=== PATIENT | female | born 1970 | race Caucasian/White ===

== ENCOUNTER → 2017-11-09 09:38 | Outpatient (CLI) | payer BC, SELFPAY ==
--- NOTE | 2017-11-09 09:44 | XR_ITS ---
XR hip RT 2-3V w/pelvis HISTORY: Pain following injury ITS.REASON: FALL ORDERING PHYSICIAN: Vi Berry MD PATIENT AGE: 47 years COMPARISON: None FINDINGS: No fracture or dislocation is evident. No significant degenerative change. No lytic or blastic change. Unremarkable soft tissues IMPRESSION: Negative hip
--- NOTE | 2017-11-09 09:44 | XR_ITS ---
XR hip LT 2-3V w/pelvis HISTORY: Post traumatic pain ITS.REASON: FALL ORDERING PHYSICIAN: Vi Berry MD PATIENT AGE: 47 years COMPARISON: None FINDINGS: No fracture or dislocation is evident. No significant degenerative change. No lytic or blastic change. Unremarkable soft tissues IMPRESSION: Negative hip
== END ==
PROVIDERS: PCP Emergency Medicine; Visit Provider Emergency Medicine
DX: M25.552 Pain in left hip (principal); M25.551 Pain in right hip; W10.8XXA Fall (on) (from) other stairs and steps, initial encounter
CPT/HCPCS: 73502

== ENCOUNTER 2020-12-01 11:39 | Emergency (ER) | payer BC, SELFPAY ==
[2020-12-01 13:10] VITALS: BP 133/77; PULSE 110; RESP 21; TEMP 38.2; O2SAT 97; BMI 26.8
--- NOTE | 2020-12-01 13:31 | HMH.EDUTC ---
[facility] [place] Clinical Impression: Viral syndrome Disposition: Home, Self-Care Condition on Discharge: Good Instructions: DI for Viral Syndrome, DI for COVID-19 (Suspected or Confirmed ), Preventing the Spread of Coronavirus Discharge Instructions Additional Instructions: *Monitor Temp, Over the counter Motrin or Tylenol as directed/as needed Tylenol every 4 hours and Motrin every 6 hours (as long as your family doctor has told you that you can take it) for fever or pain. and straight to ER if unable to lower temp less than 101.0 after medication given *Warm salt water gargles may help to soothe the throat *Throat Lozenges *Warm fluids like tea with honey may help to soothe the throat *Sleep elevated *Humidifier/Vaporizer Take medication as prescribed Follow up IMMEDIATELY for new or worsening symptoms or no Noticeable improvement over the next 48-72 hours. 911 for difficulty breathing or swallowing You were tested for today for COVID19 your test result should be back in the next 24-48 hours, you was given handout on how to log onto the [facility] portal to get your results if you have trouble logging on you may call the [facility] You was given a handout with instructions for Self Quarantine and Self isolation for while you wait on test results and what to do if they are positive If you are positive the Health Dept will be contacting you also Make sure to take your Vitamins Vit. C Vit D and Zinc if you can take them Prescriptions: Benzonatate [Tessalon Perle 100mg Cap*] 100 mg PO TID PRN #30 cap PRN Reason: Cough Transmission Status: Received by [facility] Ondansetron [Zofran 4mg ODT] 4 mg PO TIDP PRN #20 tab PRN Reason: Nausea Transmission Status: Received by [facility] Referrals: Radha Ortiz MD [Primary Care Provider] - As needed Forms: Work/School Release Time of Disposition: 14:02 Medical Decision Making - Leobardo Inquiry Pt receiving controlled substance: No Leobardo was queried for this patient: No Vital Signs: 12/01/20 13:10 12/01/20 14:07 Temperature 100.7 F H 100.7 F H Temperature Source Oral Pulse Rate 110 H Pulse Rate [Right Brachial] 110 H Respiratory Rate 21 21 Blood Pressure 133/77 Blood Pressure [Right Arm] 133/77 Blood Pressure Mean [Right Arm] 95 Blood Pressure Source [Right Arm] Automatic Cuff Blood Pressure Position [Right Arm] Sitting 02 Sat by Pulse Oximetry 97 Oxygen Delivery Method Room Air Orders (Tests/Meds): ED MEDICATIONS Discontinued Medications Generic Name Dose Route Start Last Admin Trade Name Freq PRN Reason Stop Dose Admin Ondansetron HCl 4 mg 12/01/20 13:31 12/01/20 13:38 Ondansetron 4mg/2ml Vial IM 12/01/20 13:32 4 mg ONCE ONE Administration Medical Decision Narrative: No vomiting after medication [facility] [place] HPI - General Stated complaint: cough, nasuea Time Seen by Provider: 12/01/20 13:31 Mode of Arrival: Ambulatory Source of Information: Patient Limitations: No Limitations Description of Symptoms (Recalled from Triage Doc. by RN): PATIENT C/O COUGH, CHILLS, NAUSEA AND DIARRHEA SINCE TUESDAY HEENT Symptoms (Recalled from RN notes): No Resp Symptoms (Recalled from RN notes): Yes Skin Symptoms (Recalled from RN notes): No MS Symptoms (Recalled from RN notes): No Functional Status (Recalled from RN notes): WNL - History of Present Illness Provider Complaint: Patient not been feeing well for several days having cough, body aches, fever, chills, nausea and vomiting States that today she and her has been having similar symptoms so they came in to get checked - Related Data Previous Rx's Medication Instructions Recorded Benzonatate [Tessalon Perle 100mg 100 mg PO TID PRN #30 cap 12/01/20 Cap*] Ondansetron [Zofran 4mg ODT] 4 mg PO TIDP PRN #20 tab 12/01/20 Allergies Allergy/AdvReac Type Severity Reaction Status Date / Time No Known Allergies Allergy Verified 12/01/20 13:30
[2020-12-01 14:07] VITALS: BP 133/77; PULSE 110; RESP 21; TEMP 38.2; O2SAT 97
== END 2020-12-01 14:14 | disposition home or self-care (01) ==
PROVIDERS: Emergency Provider Nurse Practitioner; PCP Family Medicine
DX: U07.1 COVID-19 (principal)
CPT/HCPCS: 96372; 99202; C9803; G0463; J2405; U0003; U0005

== ENCOUNTER 2020-12-05 13:22 | Emergency (ER) | payer BC, SELFPAY ==
[2020-12-05 13:30] VITALS: BP 119/77; PULSE 90; RESP 18; TEMP 36.8; O2SAT 98; BMI 26.6
--- NOTE | 2020-12-05 14:06 | HMH.EDUTC ---
[facility] [place]ression: Nausea & vomiting Qualifiers: Vomiting type: unspecified Vomiting Intractability: unspecified Qualified Code(s): R11.2 - Nausea with vomiting, unspecified Disposition: Home, Self-Care Condition on Discharge: Good Instructions: DI for Nausea -- Adult, Nausea and Vomiting-Adult, Promethazine, DI for COVID-19 (Suspected or Confirmed ) Additional Instructions: Drink extra fluids with and between meals. If you have difficulty drinking, try very small amounts of water or suck on ice chips. ? Avoid fruit juices, as these do not replace minerals and can actually increase diarrhea. ? Children and adults can use sports drinks to replenish electrolytes. Younger children and infants should use products formulated for children, like oral rehydration solutions. ? Eat food in small amounts and let your stomach recover. ? Get lots of rest. You may feel tired or weak. ? No greasy or fried foods for the next 24-48 hours BRAT diet Bananas Rice Apples and Tuttle ? Make sure to drink plenty of liquids ? Return if needed ? Straight to ER if any life threatening symptoms ? Phenergan as prescribed ? Follow up with family doctor in the next 48-72 hours if no improvement or any worsening of symptoms Prescriptions: Promethazine HCl [Phenergan 12.5mg tablet] 12.5 mg PO Q6H PRN #12 tab PRN Reason: Nausea Transmission Status: Received by [facility] Referrals: Radha Ortiz MD [Primary Care Provider] - As needed Time of Disposition: 15:35 Medical Decision Making - Leobardo Inquiry Pt receiving controlled substance: No Leobardo was queried for this patient: No Vital Signs: 12/05/20 13:30 12/05/20 15:12 Temperature 98.3 F 98.3 F Temperature Source Oral Pulse Rate 90 Pulse Rate [Right Brachial] 90 Respiratory Rate 18 18 Blood Pressure 119/77 Blood Pressure [Right Arm] 119/77 Blood Pressure Mean [Right Arm] 91 Blood Pressure Source [Right Arm] Automatic Cuff Blood Pressure Position [Right Arm] Sitting 02 Sat by Pulse Oximetry 98 Oxygen Delivery Method Room Air Orders (Tests/Meds): ED MEDICATIONS Generic Name Dose Route Start Last Admin Trade Name Freq PRN Reason Stop Dose Admin Sodium Chloride 1,000 mls @ 999 mls/hr 12/05/20 14:30 12/05/20 14:35 Sod Chlor 0.9% 1000ml Bag IV 12/05/20 15:30 999 mls/hr .Q1H1M SYDNEE Administration Discontinued Medications Generic Name Dose Route Start Last Admin Trade Name Joseph PRN Reason Stop Dose Admin Promethazine HCl 12.5 mg 12/05/20 14:22 12/05/20 14:35 Promethazine Hcl 25mg/Ml 1ml Vial IV 12/05/20 14:23 12.5 mg ONCE ONE Administration Sodium Chloride 25 ml 12/05/20 14:22 12/05/20 14:34 Sodium Chloride 0.9% 25ml Bag IV 12/05/20 14:23 25 ml ONCE ONE Administration Medical Decision Narrative: Patient states that medication helped with nausea no vomiting since arrival Patient states that she is feeling much better after fluids mouth now wet and she states her lips dont feel as dry [facility] [place] - General Stated complaint: covid positive 12/01; weakness and vomiting Time Seen by Provider: 12/05/20 14:06 Mode of Arrival: Ambulatory Source of Information: Patient Limitations: No Limitations Description of Symptoms (Recalled from Triage Doc. by RN): PATIENT STATES SHE TESTED POSITIVE FOR COVID ON 12/01 AND HAS BEEN VOMITING SINCE. SHE REPORTS SHE WAS SENT IN PRESCRIPTION FOR NAUSEA MEDICATION BUT IT IS NOT HELPING. HEENT Symptoms (Recalled from RN notes): No Resp Symptoms (Recalled from RN notes): No Skin Symptoms (Recalled from RN notes): No MS Symptoms (Recalled from RN notes): No Functional Status (Recalled from RN notes): WNL - History of Present Illness Provider Complaint: Patient states that she was dx with COVID on Tuesday and she was having some N/V State that she was given prescription for nausae medication but it hasnt helped and she has continued to have nausea and vomiting States that today s
[2020-12-05 15:12] VITALS: BP 119/77; PULSE 90; RESP 18; TEMP 36.8; O2SAT 98
== END 2020-12-05 15:49 | disposition home or self-care (01) ==
LOC: ER 13:38 → UTC 13:38
PROVIDERS: Emergency Provider Nurse Practitioner; PCP Family Medicine
DX: R11.2 Nausea with vomiting, unspecified (principal); Z86.16 Personal history of COVID-19
CPT/HCPCS: 96365; 96375; 99202; G0463

== ENCOUNTER → 2022-11-09 07:42 | Outpatient (CLI) | payer BC, SELFPAY ==
--- NOTE | 2022-11-09 07:49 | MM_ITS ---
PROCEDURE INFORMATION: Exam: MG Bilateral Screening 3D Mammography Exam date and time: 11/09/2022 7:53 AM Age: 52 years old Clinical indication: Baseline. No family history of breast cancer. TECHNIQUE: Imaging protocol: Bilateral Screening tomosynthesis and 2D mammography including computer-aided detection (CAD) when performed. COMPARISON: No relevant prior studies available. FINDINGS: MAMMOGRAPHY: Breast composition: The breasts are almost entirely fatty. Mass: Questions several sub cm masses in the right upper outer and lower outer quadrants, middle 3rd, CC frame 36 and MLO frame 34. Architectural distortion: None. Calcifications: No suspicious calcifications. Asymmetric density: None. Skin thickening: None. Axillary adenopathy: None. IMPRESSION: Patient will be recalled for right diagnostic spot compression in CC and MLO and right sonography for further evaluation of questionable right breast masses. ASSESSMENT: BI-RADS Category 0: Incomplete- Need Additional Imaging Evaluation and/or Prior Mammograms for Comparison
== END ==
PROVIDERS: PCP Family Medicine; Visit Provider Physician Assistant
DX: Z12.31 Encounter for screening mammogram for malignant neoplasm of breast (principal)
CPT/HCPCS: 77063; 77067

== ENCOUNTER → 2022-11-29 13:48 | Outpatient (CLI) | payer BC, SELFPAY ==
--- NOTE | 2022-11-29 13:56 | US_ITS ---
PROCEDURE INFORMATION: Exam: US Right Breast, Complete MG Right Diagnostic Breast Tomosynthesis Exam date and time: 11/29/2022 3:46 PM Age: 52 years old Clinical indication: Callback for additional assessment of several subcentimeter masses in the upper outer and lower outer right middle 1/3 identified on baseline screening mammogram 11/09/2022 TECHNIQUE: Imaging protocol: Complete ultrasound of all four quadrants of the right breast and the retroareolar regions, including ultrasound of the axilla when performed. Right Diagnostic tomosynthesis and 2D mammography including computer-aided detection (CAD) when performed. Unilateral or bilateral exam. COMPARISON: MG MM DIG MAMM DX UNILAT RT CAD 11/29/2022 1:52 PM FINDINGS: MAMMOGRAPHY: Spot compression views demonstrate low-density mostly circumscribed partially obscured masses with generally benign features. No associated architectural distortion or suspicious calcifications are present. These measure 0.7 cm in the upper outer right posterior breast 12 cm from the nipple and 0.5 cm in the upper outer right middle 1/3 8 cm from the nipple. ULTRASOUND: Ultrasound assessment of the entire right breast and right axilla was performed. Only normal glandular structures are present in the regions assessed No suspicious solid or cystic mass is present. No benign-appearing solid or cystic mass is present. No architectural distortion or shadowing is present. No axillary adenopathy is present. IMPRESSION: Probably benign 0.7 cm mass in the upper outer posterior right breast and 0.5 cm mass in the upper outer middle 1/3 right breast are sonographically occult. These have mammographic features suggestive of benign intramammary lymph nodes. Six-month follow-up diagnostic mammogram is recommended to assure stability ASSESSMENT: BI-RADS category 3: Probably benign
== END ==
LOC: RAD 13:48
PROVIDERS: PCP Family Medicine; Visit Provider Physician Assistant
DX: R92.8 Other abnormal and inconclusive findings on diagnostic imaging of breast (principal)
CPT/HCPCS: 76641; 77061; 77065; G0279

== ENCOUNTER 2023-12-18 09:34 | Emergency (ER) | payer BC, SELFPAY ==
[2023-12-18 09:40] VITALS: BP 126/84; PULSE 79; RESP 16; TEMP 36.6; O2SAT 98; BMI 33.8
--- NOTE | 2023-12-18 09:55 | EXP.UTC ---
Discharge Plan Disposition Patient Disposition: Home, Self-Care Condition: Good Prescriptions Prescriptions: New azithromycin [Zithromax Z-Bassem] 250 mg tablet See Rx Instructions .ROUTE .COMPLEX 5 Days Qty: 6 0RF Rx Instructions: For 250 mg dose pack: take 500 mg today (day 1), then 250 mg for 4 days (days 2-5) benzonatate 100 mg capsule 100 mg PO TID PRN (Reason: cough) Qty: 30 0RF methylprednisolone [Medrol (Bassem)] 4 mg tablets,dose pack See Rx Instructions .Route .COMPLEX 6 Days Qty: 21 0RF Rx Instructions: taper pack; Referrals Follow up/Referrals: Radha Ortiz MD [Primary Care Provider] - See instructions Activity Restrictions/Add. Instructions Additional Instructions/Restrictions: *Monitor Temp, Over the counter Motrin or Tylenol as directed/as needed Tylenol every 4 hours and Motrin every 6 hours (as long as your family doctor has told you that you can take it) for fever or pain. and straight to ER if unable to lower temp less than 101.0 after medication given *Warm salt water gargles may help to soothe the throat *Throat Lozenges? *Warm fluids like tea with honey may help to soothe the throat? *Sleep elevated *Humidifier/Vaporizer Take medication as prescribed Your throat swab was sent for culture. Those results are typically sent to your primary care. Be sure to follow up in 2-3 days with your family doctor/primary care physician if no improvement so they can review those result and treat if necessary. If you don?t have a primary care doctor, I recommend you get one but in the mean time, you will have to return to a walk in clinic Follow up IMMEDIATELY for new or worsening symptoms or no Noticeable improvement over the next 48-72 hours. 911 for difficulty breathing or swallowing Clinical Impressions Clinical Impression: Pharyngitis Instructions Patient Instructions: Sore Throat, DI for Sinusitis Print Language Print Language: Setswana Discharge ED Provider: Yvette Michael [facility] [place] General Stated complaint: sore throat, congestion Mode of Arrival: Ambulatory Source of Information: Patient Limitations: No Limitations Time Seen by Provider: 12/18/23 09:55 Description of Symptoms (Recalled from Triage Doc. by RN): PATIENT C/O SORE THROAT, CONGESTION, LOSS OF VOICE, AND COUGH X 5 DAYS HEENT Symptoms (Recalled from RN notes): Yes Resp Symptoms (Recalled from RN notes): Yes Skin Symptoms (Recalled from RN notes): No MS Symptoms (Recalled from RN notes): No Functional Status (Recalled from RN notes): WNL History of Present Illness Provider Complaint: Patient states for the last 5 days she has been having sinus congestion and pressure, sore scratchy throat, cough and no voice for 5 days states that today she wasnt feeling any better so she came in to get checked Related Data Previous Rx's ?Medication ?Instructions ?Recorded azithromycin 250 mg tablet See Rx Instructions PO .COMPLEX 5 12/18/23 (Zithromax Z-Bassem) days #6 tabs benzonatate 100 mg capsule 100 mg PO TID PRN cough #30 caps 12/18/23 methylprednisolone 4 mg tablets in See Rx Instructions .Route 12/18/23 a dose pack (Medrol (Bassem)) .COMPLEX 6 days #21 tabs Allergies Allergy/AdvReac Type Severity Reaction Status Date / Time No Known Allergies Allergy Verified 12/01/20 13:30 Worker's Comp Is this a Worker's Comp case?: No [facility] Disclaimer: The information contained in this section may have been updated after the patient was seen, as this information can be updated by other users. Social History Smoking Status: Never smoker alcohol intake: never substance use type: denies use current occupational status: other Travel in the last 8 weeks: None ROS Obtained: Yes All systems reviewed & no additional complaints except as documented and Yes Systems reviewed as appropriate & no additional complaints except as documented Constitutional Constitutional: Reports system reviewed and no additional complaints, except as documented, Reports as per HPI and Reports headache(s) ENT Ears, Nose, Mouth, and Throat: Reports system reviewed and no additional complaints, except as documented, Reports as per HPI, Reports headache(s), Reports sinus pain, Reports sinus pressure and Reports sore throat Cardiovascular Cardiovascular: Reports system reviewed and no additional complaints, except as documented and Reports as per HPI Respiratory Respiratory: Reports system reviewed and no additional complaints, except as documented, Reports as per HPI, Reports chest congestion and Reports cough Gastrointestinal Gastrointestingal: Reports system reviewed and no additional complaints, except as documented and as per HPI Neurologic Neurologic: Reports headache(s) Physical Exam General General appearance: alert and in no apparent distress ENT ENT exam: Present mucous membranes moist Expanded ENT Exam Nose exam: Present sinus tenderness Throat exam: Present other (Pharyngeal erythema noted with PND) Respiratory Respiratory exam: Present normal lung sounds bilaterally; Absent respiratory distress or wheezes Cardiovascular Cardiovascular exam: Present regular rate, normal rhythm and normal heart sounds Abdominal Exam Abdominal exam: Present soft and normal bowel sounds; Absent distention, tenderness or guarding Neurological Exam Neurological exam: Present alert, oriented X3 and normal gait Medical Decision Making Medical Records Screening: Per USPSTF and CDC recommendations, given the prevalence of disease in our region, it is our hospital?s policy to screen for HIV and viral Hepatitis for all patients aged 18 and over and those with ongoing risk factors. Leobardo Inquiry Pt receiving controlled substance: No Leobardo was queried for this patient: No Vital Signs: 12/18/23 09:40 Temperature 97.8 F Temperature Source Oral Pulse Rate [Left Brachial] 79 Respiratory Rate 16 Blood Pressure [Left Arm] 126/84 Blood Pressure Mean [Left Arm] 98 Blood Pressure Source [Left Arm] Automatic Cuff Blood Pressure Position [Left Arm] Sitting 02 Sat by Pulse Oximetry 98 Oxygen Delivery Method Room Air Lab Data Lab results reviewed: Yes I reviewed the patient's lab results.
[2023-12-18 09:56] LABS: UTC Strep Screen (Rapid) Negative (Negative)
[2023-12-18 10:08] VITALS: BP 126/84; PULSE 79; RESP 16; TEMP 36.6; O2SAT 98
== END 2023-12-18 10:11 | disposition home or self-care (01) ==
PROVIDERS: Emergency Provider Nurse Practitioner; PCP Family Medicine
DX: J02.9 Acute pharyngitis, unspecified (principal)
CPT/HCPCS: 87880; 99213; G0381